=== PATIENT | female | born 1955 | race Caucasian/White ===

== ENCOUNTER 2016-06-14 16:52 | Emergency (ER) | payer BC ==
--- NOTE | 2016-06-29 15:34 | ER ---
ADMIT: 06/14/2016 RM/LOC: ER [facility] MR#: [id number] [facility] [id number] [place] [address] [facility] [address] [place] [address] Emergency Room Report SEX: F AGE: 60 : 1955 DATE: 06/14/2016 ADDENDUM: This is a 60-year-old white female with right-sided weakness. She had gone over the CT scan that was negative and then when she came back, her stroke scale zero down. At this time, her stroke scale is 0. There is no bleed. We have no neurologist. I spoke with Dr. Anne, he wants her transferred to [facility], where they have neurologist. She is in agreement with this. CONDITION ON DISCHARGE: Serious but stable at this time. She will be transferred by ambulance. Dr. Mcgill and the night warehouse selector at [facility] has accepted. Manjinder Faustin MD/ angelica JOB #: [id number] CC: Manjinder Faustin MD, Attending Physician Mackenzie Aldridge, Family Physician
== END 2016-06-14 18:55 | disposition short-term general hospital (02) ==
LOC: ER 16:52
DX: G45.8 Other transient cerebral ischemic attacks and related syndromes (principal); Z90.49 Acquired absence of other specified parts of digestive tract; Z88.5 Allergy status to narcotic agent